=== PATIENT | female | born 2000 ===

== ENCOUNTER 2023-08-24 23:23 | Emergency (ER) | payer OTHER, SELFPAY ==
[2023-08-24 23:36] VITALS: BP 129/77
--- NOTE | 2023-08-25 00:30 | ED.GENMED ---
History of Present Illness
<CHICO Gonzalez - Last Filed: 08/25/23 01:43>
General
Chief Complaint: Dental Problem
Source: patient
Time Seen by Provider: 08/25/23 00:27
Travel History
Have you had any contact with someone who has COVID-19?: No
Do you have any symptoms of coronavirus? Fever > 100 degrees, chills, cough, shortness of breath, sore throat, loss of taste or smell, muscle aches, or headache?: No
History of Present Illness
History of Present Illness:
Pt is a 23 year old female presenting left-sided dental pain in her lower molar area x 1 day. Pt states today the pain began radiating to her lower jaw and she noticed a bump along her jaw where the pain in. She notes she has a history of a crack in
one of her molars where the pain is located but it has never caused her pain before. She states Tylenol has helped the pain, noting she took it throughout the day yesterday and the last dose she took was at 4pm. Pt reports swallowing and
eating/drinking makes the pain worse. She reports she is only able to open her mouth slightly. Pt also reports chills and mild headache that began yesterday but no fever. She admits to mild congestion and cough. Pt denies sore throat, ear pain,
sinus pressure, SOB, drooling while awake, eye feng, or neck pain. She denies any recent dental procedures or antibiotic use.
Review of Systems
<CHICO Gonzalez - Last Filed: 08/25/23 01:43>
Review of Systems
Allergies reviewed?: Yes
Constitutional: Reports chills
EENT: Reports mouth pain, mouth swelling and other (congestion)
Respiratory: Reports cough
Cardiac: Reports no symptoms
ABD/GI: Reports nausea
: Reports no symptoms
Musculoskeletal: Reports other (jaw pain)
Skin: Reports no symptoms
Neurological: Reports headache
Endocrine: Reports no symptoms
Hematologic/Lymphatic: Reports no symptoms
Psychiatric: Reports no symptoms
Phy Exam
<CHICO Gonzalez - Last Filed: 08/25/23 01:43>
General Physical Exam
General Presentation: well appearing
General age: appears stated age
General Skin: warm
General Habitus: normal
General Mental: alert
General Hydration: appears well hydrated
ENT Exam
ENT Exam: EOMI, pharynx normal, neck supple and other (no gingival erythema or swelling noted)
Additional ENT: TTP of lower jaw with palpable lymph node below area of pain
Cardiovascular Exam
Cardiovascular Exam: regular rate/rhythm, no edema and no murmur
Pulmonary Exam
Pulmonary Exam: lungs clear
Neurological Exam
Neurological Exam: alert and oriented x3
Musculoskeletal Exam
Musculoskeletal Exam: other (limited ability to open jaw)
Skin Exam
Skin Exam: normal color and warm/dry
Psychiatric Exam
Psychiatric Exam: normal mood/affect
Course
<CHICO Gonzalez - Last Filed: 08/25/23 01:43>
Orders/Labs/Results
Orders:
Orders
08/25/23 01:20
Doxycycline [Vibramycin] 100 mg PO NOW STA
Ibuprofen [Motrin] 800 mg PO NOW STA
08/25/23 01:34
Doxycycline [Vibramycin] 100 mg .ROUTE .STK-MED ONE
Vital Signs
Initial and Last Documented VS:
Initial Vital Signs
Temp Pulse Resp BP Pulse Ox
98.2 F 101 16 129/77 99
08/24/23 23:36 08/24/23 23:36 08/24/23 23:36 08/24/23 23:36 08/24/23 23:36
Last Documented Vital Signs
Temp Pulse Resp BP Pulse Ox
98.2 F 101 16 129/77 99
08/24/23 23:36 08/24/23 23:36 08/24/23 23:36 08/24/23 23:36 08/24/23 23:36
<Norma Steele DO - Last Filed: 08/25/23 01:30>
Orders/Labs/Results
Orders:
Orders
08/25/23 01:20
Doxycycline [Vibramycin] 100 mg PO NOW STA
Ibuprofen [Motrin] 800 mg PO NOW STA
08/25/23 01:34
Doxycycline [Vibramycin] 100 mg .ROUTE .STK-MED ONE
Vital Signs
Initial and Last Documented VS:
Initial Vital Signs
Temp Pulse Resp BP Pulse Ox
98.2 F 101 16 129/77 99
08/24/23 23:36 08/24/23 23:36 08/24/23 23:36 08/24/23 23:36 08/24/23 23:36
Last Documented Vital Signs
Temp Pulse Resp BP Pulse Ox
98.2 F 101 16 129/77 99
08/24/23 23:36 08/24/23 23:36 08/24/23 23:36 08/24/23 23:36 08/24/23 23:36
<CHICO Gonzalez - Last Filed: 08/25/23 01:43>
MDM/Problems Addressed
Differential Diagnosis Includes:
dental abscess, Conner angina, osteomyelitis of the jaw
MDM/Problems Addressed:
Tooth and jaw pain
<CHICO Gonzalez - Last Filed: 08/25/23 01:43>
*Critical Care Note
Total Time (30-74mins, 75-104mins- exclusive of procedures): Not Applicable
<Norma Steele DO - Last Filed: 08/25/23 01:30>
*Pulse Oximetry
Patient hypoxic: no
ED Attending Note
<CHICO Gonzalez - Last Filed: 08/25/23 01:43>
-
Portions of this chart may have been created with voice recognition software.� Occasional wrong word or��sound alike� substitutions may have occurred due to the inherent limitations of voice recognition software.
<Norma Steele DO - Last Filed: 08/25/23 01:30>
ED Attending Note
Patient seen and examined by attending physician: Yes
I performed the substantive portion of visit, reviewed & personally made and approve the management plan that is documented in note by myself or DUNCAN.: Yes
I performed a history and physical exam of patient and discussed management with resident, I reviewed resident's note and agree with documented findings and plan of care.: Yes
ED Attending Note:
This is a 23-year-old female with no significant past medical history who complains of left posterior lower molar pain that began yesterday, somewhat worse today and she became concerned this evening when she felt a swollen gland left submandibular
region. She was last evaluated by her dentist approximately 3 months ago and at that time noted to have impacted wisdom teeth and was referred to an oral surgeon. She has been having trouble getting in touch with oral surgeon stating the phone
rings and nobody answers.
She took Tylenol around 4 PM with moderate improvement in pain. She has not had a fever, no difficulty swallowing but notes increased pain with opening her mouth and increased pain with chewing on that left side. Pain radiates occasionally to her
left ear.
She takes no medicines on a daily basis and denies risk of , has IUD in place.
GENERAL: 23-year-old female appears her stated age, bright and alert, pleasant, easily communicative and in no acute distress. Afebrile. Normotensive.
EYE: anicteric
NECK: Supple, nontender, no meningismus, there is a small slightly enlarged mildly tender left submandibular node. No surrounding soft tissue swelling nor erythema.
ENT: posterior pharynx is clear, oral mucosa is moist. TM clear b/l, nares patent. There is early eruption of wisdom teeth bilaterally with moderate tenderness to the left posterior wisdom tooth, molar #17. There is no surrounding gingival
erythema nor gingival edema. No gross dental carry.
CARDIAC: Regular rate and rhythm. no murmur.
LUNGS: Clear breath sounds bilaterally, no acute respiratory distress, no wheezes/rales/rhonchi
ABDOMEN: Soft, nondistended, without focal tenderness
NEUROLOGICAL: Alert and oriented x3, no focal neuro deficits. Gait is solitario and steady.
SKIN: Warm and dry, normal color, skin intact. No rash.
MUSCULOSKELETAL: No C/C/E. peripheral pulses are full and equal b/l. No palpable tenderness.
PSYCH: Normal and appropriate interaction.
Patient presents with left posterior molar dentalgia I suspect is related to impacted wisdom tooth but she is noted to have small either reactive submandibular gland on the left versus an early abscess formation. Will initiate a course of
antibiotic and initiate ibuprofen for pain.
Overall nontoxic in appearance. Afebrile.
No risk factors for immunocompromise.
No indication for lab studies nor radiologic studies at this point.
Recommend supportive measures, elevating head of bed, local ice versus heat.
Recommend prompt follow-up with her primary dentist for recheck.
Return precautions discussed.
Discharge Plan
Departure
Patient Disposition: Home (Routine Discharge)
Date of Disposition: 08/25/23
Time of Disposition: 01:27
Patient with high blood pressure during this ER visit?: No
Condition: Good
Discharge Problem:
acute dentalgia
Instructions: Tooth Abscess (DC), Dental Pain (DC)
Prescriptions:
New
ibuprofen 800 mg tablet
800 mg PO QIDPRN PRN (Reason: pain, fever) Qty: 30 0RF
doxycycline monohydrate 100 mg capsule
100 mg PO BID Qty: 20 1RF
Referrals:
NONE,* [Family Provider] -
Activity Restrictions/Additional Instructions:
Call your dentist tomorrow for prompt follow-up/recheck.
Interventions
Interventions:
*Risk Screen - Suicide Last Done: 08/24/23 23:36
*General Assessment Last Done: 08/24/23 23:36
*Neglect/Abuse Screening Last Done: 08/24/23 23:36
[2023-08-25] MEDS: MOTRIN 800 MG PO (01:30)
[2023-08-25] MEDS: VIBRAMYCIN 100 MG PO (01:30)
== END 2023-08-25 02:05 | disposition home or self-care (01) ==
LOC: EMR 23:23
PROVIDERS: EMERGENCY PHYSICIAN Emergency Medicine
DX: K08.89 Other specified disorders of teeth and supporting structures (principal); K01.1 Impacted teeth
CPT/HCPCS: 99283